=== PATIENT | female | born 1975 | race Hispanic/Latino ===

== ENCOUNTER 2018-09-17 07:29 | Day surgery (SDC) | payer OTHER ==
[2018-09-16 14:32] LABS: BASOPHILS % (AUTO) 0.6 % (0.0-5.0); EOSINOPHILS % (AUTO) 2.6 % (0.0-8.0); LYMPHOCYTES % (AUTO) 21.6 % (21.0-51.0); MEAN CORPUSCULAR HEMOGLOBIN 27.6 pg (27.0-33.0); MEAN CORPUSCULAR HGB CONC 34.7 g/dL (32.0-36.0); MEAN CORPUSCULAR VOLUME 79.6 fL (79-99); MONOCYTES % (AUTO) 9.8 % (3.0-13.0); NEUTROPHILS % (AUTO) 65.4 % (40.0-77.0); NUCLEATED RED BLOOD CELLS 0.1 % (0.0-0.19); PLATELET COUNT (AUTO) 270 K/uL (130-400); RED BLOOD CELL COUNT(AUTO) 5.52 MIL/uL (4.00-5.50); RED CELL DISTRIBUTION WIDTH 13.6 % (11.0-15.5)
[2018-09-16 14:33] VITALS: BP 142/85
[2018-09-16] MEDS: CALDOLOR 800MG+NS 250ML 250 ML IV SCH (16:15)
[~2018-09-17] VITALS: Ht 160 cm; Wt 103.9 kg
[2018-09-17] VITALS (21 sets, daily range): BP systolic 114–145; BP diastolic 70–86
[~2018-09-17 07:29] MED LIST: CEFAZOLIN 3GM /D5W 100ML 100 ML IV SCH; LACTATED RINGERS 1000ML 1,000 ML IV SCH
[2018-09-17] MEDS ORDERED: CEFAZOLIN SODIUM 1 GM VIAL ONE (08:28)
[2018-09-17] MEDS ORDERED: ONDANSETRON HCL 4 MG/2 ML VIAL ONE (08:57)
[2018-09-17] MEDS ORDERED: DEXAMETHASONE SOD PHOSPHATE 10MG/ML 1ML VIAL ONE (08:57)
[2018-09-17] MEDS ORDERED: LIDOCAINE PF 2% 5ML ABBOJECT ONE (08:57)
[2018-09-17] MEDS ORDERED: MIDAZOLAM HCL 1 MG/ML 2ML VIAL ONE (08:58)
[2018-09-17] MEDS ORDERED: ROCURONIUM 10MG/1ML SYR 10 MG/ML ML ONE (08:58)
[2018-09-17] MEDS ORDERED: PROPOFOL 10 MG/ML 20ML VIAL IV ONE (08:58)
[2018-09-17] MEDS ORDERED: FENTANYL CITRATE PF 50 MCG/1 ML 2ML VIAL ONE (08:58)
[2018-09-17] MEDS ORDERED: NEOSTIGMINE 5MG/5ML SYR IV ONE (09:01)
[2018-09-17] MEDS ORDERED: GLYCOPYRROLATE 1 MG/5 ML SYRINGE ONE (09:01)
[2018-09-17] MEDS ORDERED: BUPIVACAINE/PF 0.25% 30ML VIAL IJ ONE (09:24)
[2018-09-17] MEDS: CALDOLOR 800MG+NS 250ML 250 ML IV SCH (09:37)
[2018-09-17] MEDS ORDERED: MEPERIDINE-PF 25 MG/ML SYG ONE ×2 (11:04→11:15)
--- NOTE | 2018-09-17 12:30 | NUR ---
PATIENT UNABLE TO VOIDE, ENCOURAGED PO FLUIDS BUT STILL NOT ABLE TO VOID.
--- NOTE | 2018-09-17 13:00 | NUR ---
PATIENT AMBULATING IN [place], TAKING PO FLUIDS, BUT STILL UNABLE TO VOID. PATIENT WAS TOLD OF ORDERS BY DR. PARRA TO STRAIGHT CATH OR PUT FC IF PT UNABLE TO VOID ON HER OWN. PATIENT AGREED BUT ASKED TO WAIT FOR HER TO ATTEMPT TO VOIS.
--- NOTE | 2018-09-17 13:30 | NUR ---
PATIENT NOT ABLE TO VOID AFTER ATTEMPTING SEVERAL TIMES, 16 FR RANDLE CATHETER ON PT 700 ML OF CLEAR YELLOW URINE. PATIENT AND FAMILY RECEIVED TEACHING ON RANDLE CATHETER CARE. PATIENT WAS INSTRUCTED TO GO TO DR. YAO TO REMOVE FC ON Thursday09/20/2018. BOTH PATIENT AND FAMILY VERBALIZED UNDERSTANDING.
== END 2018-09-17 13:50 | disposition home or self-care (01) ==
LOC: DAH 07:29
PROVIDERS: ATTEND Obstetrics & Gynecology
DX: Z30.2 Encounter for sterilization (principal); N81.10 Cystocele, unspecified; N39.3 Stress incontinence (female) (male); E11.9 Type 2 diabetes mellitus without complications; I10 Essential (primary) hypertension; Z79.84 Long term (current) use of oral hypoglycemic drugs; Z79.899 Other long term (current) drug therapy; Z98.890 Other specified postprocedural states
CPT/HCPCS: 36415; 57240; 58670; 84703; 85025; 86850; 86900; 86901; A4218; A4351; A4649; A4930; C1769 ×2; G0168; J0690; J1100; J1741; J2001; J2175 ×2; J2250; J2405; J2704; J2710; J3010; J3490 ×2; J7030; J7120